=== PATIENT | female | born 1955 | race Caucasian/White ===

== ENCOUNTER 2023-12-13 08:53 | Observation (INO) | payer MEDICARE ==
[2023-12-01 16:02] VITALS: BMI 30.3
[2023-12-13] MEDS ORDERED: fentaNYL 50 mcg/mL 1 mL Vial ONE (09:15)
[2023-12-13] MEDS ORDERED: EPINEPHrine 1 MG/ML VIAL ONE (09:15)
[2023-12-13] MEDS ORDERED: Midazolam HCl 2 mg/2 ml Vial ONE (09:15)
[2023-12-13] MEDS ORDERED: Bupivacaine PF 0.5% 30 ML VIAL ONE ×2 (09:15→09:29)
[2023-12-13] MEDS ORDERED: Dexamethasone 20 MG/5 ML VIAL ONE (09:25)
[2023-12-13] MEDS ORDERED: Lidocaine 1% PF 5 ML VIAL ONE (09:25)
[2023-12-13] MEDS ORDERED: PROPOFOL 20 ML ONE (09:25)
[2023-12-13] MEDS ORDERED: fentaNYL PF 100 MCG/2 ML SYRINGE ONE ×3 (09:25→12:24)
[2023-12-13] MEDS ORDERED: Ondansetron PF 4 MG/2 ML Vial ONE ×2 (09:25→13:49)
[2023-12-13] MEDS ORDERED: Lidocaine 1% (PF) 30 ML VIAL ONE (09:29)
[2023-12-13] MEDS ORDERED: methylPREDNISolone Acetate 40 mg/ml Vial ONE (09:29)
[2023-12-13] MEDS ORDERED: CEFAZOLIN 2 GM VIAL ONE ×2 (09:30→12:36)
[2023-12-13] MEDS ORDERED: Sodium Chloride 0.9% 200 ML ONE (09:30)
[2023-12-13] MEDS ORDERED: Tranexamic Acid 1,000 MG/10 ML VIAL ONE ×2 (09:30→12:24)
[2023-12-13] MEDS ORDERED: Vancomycin (BATCH) 1.5 GM/300 ML BAG ONE (09:31)
[2023-12-13] MEDS ORDERED: fentaNYL 50 mcg/mL 1 mL Vial SLOW IVP PRN (10:22)
[2023-12-13] MEDS ORDERED: Ropivacaine 0.2% 550 ML 550 ML NERVE BLCK SCH (10:30)
[2023-12-13] MEDS ORDERED: HYDROcodone/Acetaminophen 10/325 mg Tablet PO PRN ×2 (10:30)
[2023-12-13] MEDS ORDERED: Ondansetron PF 4 MG/2 ML Vial IVP PRN ×2 (10:30→12:19)
[2023-12-13] MEDS ORDERED: Zolpidem Tartrate 5 MG TAB PO PRN ×2 (10:30→12:19)
[2023-12-13] MEDS ORDERED: Promethazine HCl 25 MG/ML VIAL IM PRN ×2 (10:30→12:19)
[2023-12-13] MEDS ORDERED: traMADol HCl 50 MG TAB PO PRN (10:30)
[2023-12-13] MEDS ORDERED: ePHEDrine Sulfate 50 MG/10 ML VIAL ONE (10:48)
[2023-12-13] MEDS ORDERED: diphenhydrAMINE 25 MG CAP PO PRN (12:19)
[2023-12-13] MEDS ORDERED: Acetaminophen 325 MG TAB PO PRN (12:19)
[2023-12-13] MEDS ORDERED: Tranexamic Acid 1,000 MG in Sodium Chloride 0.9% 100 ML IVPB SCH (12:30)
[2023-12-13] MEDS ORDERED: Ketorolac Tromethamine 30 MG (1 mL) VIAL ONE (12:36)
[2023-12-13] MEDS ORDERED: Sodium Chloride 0.9% 100 ML ONE (12:39)
[2023-12-13] MEDS ORDERED: hydrALAZINE 20 MG/ML VIAL ONE (13:47)
[2023-12-13] MEDS ORDERED: Promethazine HCl 25 MG/ML VIAL ONE ×2 (13:58→14:33)
[2023-12-13] MEDS: Ketorolac Tromethamine 30 MG (1 mL) VIAL IVP SCH (17:20)
[2023-12-13] MEDS: CEFAZOLIN 2 GM in Sodium Chloride 0.9% 100 ML IVPB SCH (17:53)
[2023-12-13] MEDS: Sodium Chloride 0.9% 1,000 ML IV SCH (17:53)
[2023-12-13] MEDS: Atorvastatin Calcium 10 MG TAB PO SCH (20:18)
[2023-12-13] MEDS: Vancomycin (BATCH) 1.5 GM in Premix 1 BAG IVPB SCH (20:18)
[2023-12-13] MEDS: Aspirin 81 mg Enteric Coated Tablet PO SCH (20:18)
[2023-12-13] MEDS: traMADol HCl 50 MG TAB PO PRN (21:24)
[2023-12-14 06:14] LABS: Hematocrit 36.9 % (36.0-47.0); Hemoglobin 12.3 g/dL (12.0-16.0); Mean Corpuscular HGB CONC 33.3 g/dL (32.0-36.0); Mean Corpuscular Hemoglobin 29.7 pg (27.0-31.0); Mean Corpuscular Volume 89.1 fL (78.0-98.0); Mean Platelet Volume 11.6 fL (7.4-10.4); Platelet Count 262 10x3/uL (130-400); RBC Distribution Width 12.6 % (11.5-14.5); Red Blood Cell (RBC) Count 4.14 mill/uL (4.20-5.40)
[2023-12-14] MEDS ORDERED: Aspirin 81 mg Enteric Coated Tablet PO SCH (09:00)
[2023-12-14] MEDS ORDERED: Non-Formulary Item 1 EACH (Multivit-Min/Folic/Vit K/Lycop [Men's 50 Plus Multivitamin Tab PO SCH (09:00)
[2023-12-14] MEDS: Calcium Carbonate 600 MG TAB PO SCH (09:15)
[2023-12-14] MEDS: Lisinopril 20 MG TAB PO SCH (09:15)
[2023-12-14] MEDS: Multivitamin W/ Minerals 1 TAB PO SCH (09:15)
[2023-12-14] MEDS: Loratadine 10 MG TAB PO SCH (09:16)
[2023-12-14] MEDS: Ferrous Gluconate 324 MG TAB PO SCH (09:16)
[2023-12-14 11:49] VITALS: BP 149/72; TEMP 97.6
[2023-12-14] MEDS: Fluticasone Propionate Nasal Spray 16 gm Bottle NASAL SCH (12:09)
[2023-12-14] MEDS: Senokot S 8.6-50 MG TAB PO SCH (13:37)
[2023-12-16] MEDS ORDERED: CeleCOXIB 100 MG CAP PO SCH (12:00)
== END 2023-12-14 12:44 | disposition home or self-care (01) ==
LOC: SDC 08:53 → SURG A 17:37
PROVIDERS: ADMIT Orthopaedic Surgery; ATTEND Orthopaedic Surgery
PROC: 0SRD0JZ Replacement of Left Knee Joint with Synthetic Substitute, Open Approach (ICD-10-PCS; principal; 2023-12-13)
PROC: 0S9C3ZZ Drainage of Right Knee Joint, Percutaneous Approach (ICD-10-PCS; 2023-12-13)
PROC: 3E0T3BZ Introduction of Anesthetic Agent into Peripheral Nerves and Plexi, Percutaneous Approach (ICD-10-PCS; 2023-12-13)
DX: M17.0 Bilateral primary osteoarthritis of knee (principal); I10 Essential (primary) hypertension; E78.5 Hyperlipidemia, unspecified; M19.90 Unspecified osteoarthritis, unspecified site; K21.9 Gastro-esophageal reflux disease without esophagitis; E78.00 Pure hypercholesterolemia, unspecified; M81.0 Age-related osteoporosis without current pathological fracture; Z98.890 Other specified postprocedural states; Z79.899 Other long term (current) drug therapy
CPT/HCPCS: 0055T; 20610; 27447; 64447; 36415; 85027; A4306; C1713; C1776; C1889; J0171; J0360; J0665; J1030; J1100; J1885; J2001; J2250; J2405; J2550; J2704; J2795; J3010; J3370

== ENCOUNTER 2024-12-20 11:53 | Outpatient (CLI) | payer MEDICARE | END 2024-12-20 11:54 | disposition home or self-care (01) | LOC: CT 11:53 | PROVIDERS: ATTEND Orthopaedic Surgery | DX: Z01.818 Encounter for other preprocedural examination (principal); M17.11 Unilateral primary osteoarthritis, right knee | CPT/HCPCS: 71046; 80048; 81001; 85025; 85610; 87081; 93005; 93010 ==

== ENCOUNTER 2024-12-20 12:06 | Outpatient (CLI) | payer MEDICARE ==
[2024-12-20 13:27] LABS: #Basophils 0.03 10x3/uL (0.0-0.2); #Eosinophils 0.08 10x3/uL (0.0-0.7); #Monocytes 0.63 10x3/uL (0.11-0.59); #Neutrophils 4.95 10x3/uL (1.40-6.50); %Basophils 0.3 % (0.0-1.0); %Eosinophils 0.8 % (0.0-10.0); %Lymphocytes 44.9 % (21.0-51.0); %Monocytes 6.1 % (0.0-10.0); %Neutrophils 47.6 % (42.0-75.0); Hematocrit 43.9 % (36.0-47.0); Hemoglobin 14.4 g/dL (12.0-16.0); Mean Corpuscular Hemoglobin 29.4 pg (27.0-31.0); Mean Corpuscular Volume 89.6 fL (78.0-98.0); Platelet Count 287 10x3/uL (130-400); Red Blood Cell (RBC) Count 4.90 mill/uL (4.20-5.40); White Blood Cell (WBC) Count 10.39 10x3/uL (4.8-10.8)
[2024-12-20 13:47] LABS: INR-International Normal Ratio 1.0; Prothrombin Time 13.7 sec (12.0-14.7)
[2024-12-20 13:48] LABS: Anion Gap 16 mmol/L (10-20); BUN (Urea Nitrogen) 17 mg/dL (9.8-20.1); Calc. Creatinine Clearance 0 mL/min (70-130); Calcium 10.0 mg/dL (7.8-10.44); Carbon Dioxide 25 mmol/L (23-31); Chloride 107 mmol/L (98-107); Glucose 98 mg/dL (83-110); Potassium 4.0 mmol/L (3.5-5.1); Sodium 144 mmol/L (136-145)
[2024-12-20 15:10] LABS: Bacteria/HPF None Seen HPF (None Seen); Glucose, Urine (Dipstick) Normal (Negative); Leukocyte Negative Leu/uL (Negative); Protein, Urine (Dipstick) Negative (Neg-Trace); RBC/HPF 0-3 HPF (0-3); Specific Gravity, Urine 1.006 (1.002-1.036); WBC/HPF 0-3 HPF (0-3)
== END 2024-12-20 12:07 | disposition home or self-care (01) ==
LOC: LABBT 12:06
PROVIDERS: ATTEND Orthopaedic Surgery
DX: Z01.818 Encounter for other preprocedural examination (principal); M17.11 Unilateral primary osteoarthritis, right knee
CPT/HCPCS: 71046; 80048; 81001; 85025; 85610; 87081

== ENCOUNTER 2024-12-27 09:06 | Observation (INO) | payer MEDICARE ==
[2024-12-27] MEDS ORDERED: Tranexamic Acid 1,000 MG/10 ML VIAL ONE ×2 (09:30→13:39)
[2024-12-27] MEDS ORDERED: CEFAZOLIN 2 GM VIAL ONE (09:30)
[2024-12-27] MEDS ORDERED: Vancomycin 1 GM/200 ML (PREMIX FOIL) BAG ONE (09:31)
[2024-12-27] MEDS ORDERED: Ropivacaine 0.5% HCl/PF (150 MG/30 ML VIAL) ONE (09:39)
[2024-12-27] MEDS ORDERED: Ropivacaine 0.2% 550 ML 550 ML NERVE BLCK SCH (11:00)
[2024-12-27] MEDS ORDERED: HYDROcodone/Acetaminophen 10/325 mg Tablet PO PRN (11:00)
[2024-12-27] MEDS ORDERED: Ondansetron PF 4 MG/2 ML Vial IVP PRN (11:00)
[2024-12-27] MEDS ORDERED: Bupivacaine 0.25% HCL 30 ML VIAL ONE (11:02)
[2024-12-27] MEDS ORDERED: Lidocaine 1% PF 5 ML VIAL ONE (11:04)
[2024-12-27] MEDS ORDERED: Ondansetron PF 4 MG/2 ML Vial ONE ×2 (11:04→16:00)
[2024-12-27] MEDS ORDERED: fentaNYL PF 100 MCG/2 ML SYRINGE ONE ×2 (11:04→13:08)
[2024-12-27] MEDS ORDERED: PROPOFOL 20 ML ONE (11:05)
[2024-12-27] MEDS ORDERED: Acetaminophen 325 MG TAB PO PRN (12:43)
[2024-12-27] MEDS ORDERED: diphenhydrAMINE 25 MG CAP PO PRN (12:43)
[2024-12-27] MEDS ORDERED: hydrALAZINE 20 MG/ML VIAL ONE (13:40)
[2024-12-27] MEDS ORDERED: HYDROmorphone 0.5 MG/0.5 ML SYRINGE ONE ×2 (14:04→14:29)
[2024-12-27] MEDS: Ketorolac Tromethamine 30 MG (1 mL) VIAL IVP SCH (17:14)
[2024-12-27] MEDS: Ferrous Gluconate 324 MG TAB PO SCH (20:46)
[2024-12-27] MEDS: Aspirin 81 mg Enteric Coated Tablet PO SCH (20:46)
[2024-12-27] MEDS: Senokot S 8.6-50 MG TAB PO SCH (20:49)
[2024-12-27] MEDS: Ondansetron PF 4 MG/2 ML Vial IVP PRN (21:36)
[2024-12-28 03:39] VITALS: TEMP 98
[2024-12-28 05:30] LABS: Hematocrit 36.1 % (36.0-47.0); Hemoglobin 11.8 g/dL (12.0-16.0); Mean Corpuscular Hemoglobin 29.6 pg (27.0-31.0); Mean Corpuscular Volume 90.7 fL (78.0-98.0); Platelet Count 232 10x3/uL (130-400); Red Blood Cell (RBC) Count 3.98 mill/uL (4.20-5.40); White Blood Cell (WBC) Count 15.75 10x3/uL (4.8-10.8)
[2024-12-28 08:38] VITALS: BP 139/50
[2024-12-28] MEDS: HYDROcodone/Acetaminophen 10/325 mg Tablet PO PRN (09:23)
[2024-12-28] MEDS: Lisinopril 20 MG TAB PO SCH (09:24)
[2024-12-28] MEDS: Metoprolol Succinate XL 100 MG ER.TAB PO SCH (09:26)
[2024-12-28] MEDS: Multivitamin W/ Minerals 1 TAB PO SCH (09:26)
[2024-12-28] MEDS: Calcium Carbonate 600 MG + Vit D TAB PO SCH (09:27)
[2024-12-28] MEDS: Aspirin 81 mg Enteric Coated Tablet PO SCH (09:27)
== END 2024-12-28 11:20 | disposition home or self-care (01) ==
LOC: SDC 09:06 → SURG B 12:43
PROVIDERS: ADMIT Orthopaedic Surgery; ATTEND Orthopaedic Surgery
PROC: 0SRC0JZ Replacement of Right Knee Joint with Synthetic Substitute, Open Approach (ICD-10-PCS; principal; 2024-12-27)
PROC: 3E0T3BZ Introduction of Anesthetic Agent into Peripheral Nerves and Plexi, Percutaneous Approach (ICD-10-PCS; 2024-12-27)
DX: M17.11 Unilateral primary osteoarthritis, right knee (principal); I10 Essential (primary) hypertension; E78.00 Pure hypercholesterolemia, unspecified; Z96.652 Presence of left artificial knee joint; Z79.82 Long term (current) use of aspirin; Z79.899 Other long term (current) drug therapy
CPT/HCPCS: 0055T; 27447; 64448; 36415; 85027; A4306; C1713; C1776; C1889; J0166; J0360; J0665; J1100; J1171; J1885; J2250; J2405; J2704; J2795; J3010; J3372; J7030